=== PATIENT | female | born 1960 | race Caucasian/White ===

== ENCOUNTER 2017-03-05 17:41 | Emergency (ER) | payer OTHER, SELFPAY | END 2017-03-05 18:34 | disposition home or self-care (01) | LOC: ERS 17:41 | DX: G89.29 Other chronic pain (principal); M54.5 Low back pain; M26.601 Right temporomandibular joint disorder, unspecified | CPT/HCPCS: 99283 ==

== ENCOUNTER 2017-09-23 23:08 | Emergency (ER) | payer MEDICARE, MEDICAID ==
[2017-09-23 23:48] LABS: #Basophils 0.1 thou/uL (0.0-0.2); #Monocytes 0.6 thou/uL (0.11-0.59); #Neutrophils 9.6 thou/uL (1.40-6.50); %Basophils 0.4 % (0.0-1.0); %Eosinophils 0.3 % (0.0-10.0); %Lymphocytes 16.5 % (21.0-51.0); %Monocytes 4.9 % (0.0-10.0); %Neutrophils 77.9 % (42.0-75.0); Hemoglobin 16.9 g/dL (12.0-16.0); Mean Corpuscular HGB CONC 34.8 g/dL (32.0-36.0); Mean Corpuscular Hemoglobin 32.7 pg (27.0-31.0); Mean Platelet Volume 8.1 fL (7.4-10.4); Platelet Count 224 thou/uL (130-400); RBC Distribution Width 11.4 % (11.5-14.5); Red Blood Cell (RBC) Count 5.17 mill/uL (4.20-5.40); White Blood Cell (WBC) Count 12.3 thou/uL (4.8-10.8)
[2017-09-23] MEDS ORDERED: Lorazepam 2 MG/ML VIAL ONE (23:49)
[2017-09-24 00:14] LABS: ALT (SGPT) 17 U/L (8-55); AST (SGOT) 20 U/L (5-34); Albumin 5.1 g/dL (3.5-5.0); Alkaline Phosphatase 116 U/L (40-150); Anion Gap 19 mmol/L (10-20); BUN (Urea Nitrogen) 11 mg/dL (9.8-20.1); Bilirubin, Total 0.6 mg/dL (0.2-1.2); Calc. Creatinine Clearance 0 mL/min (70-130); Calcium 10.8 mg/dL (7.8-10.44); Carbon Dioxide 19 mmol/L (22-29); Chloride 107 mmol/L (98-107); Estimated GFR-MDRD 65; Globulin 3.6 g/dL (2.4-3.5); Glucose 110 mg/dL (70-105); Lipase 26 U/L (8-78); Potassium 3.7 mmol/L (3.5-5.1); Protein, Total 8.7 g/dL (6.0-8.3); Sodium 141 mmol/L (136-145)
[2017-09-24] MEDS ORDERED: Haloperidol Lactate 5 MG/ML VIAL ONE (00:59)
== END 2017-09-24 03:10 | disposition home or self-care (01) ==
LOC: ERS 23:08
DX: R10.9 Unspecified abdominal pain (principal); F41.1 Generalized anxiety disorder; F32.9 Major depressive disorder, single episode, unspecified
CPT/HCPCS: 36415; 80053; 83690; 85025; 93005; 96361; 96374; 96375; J1630; J2060

== ENCOUNTER 2020-01-13 07:19 | Outpatient (CLI) | payer MEDICARE, MEDICAID ==
--- NOTE | 2020-01-13 08:22 | MMO ---
Bilateral MAMMO Bilat Screen [facility]. CLINICAL HISTORY: Patient is 59 years old and is seen for screening. The patient has no family history of breast cancer. The patient has no personal history of cancer. VIEWS: The views performed were: bilateral craniocaudal with tomosynthesis; bilateral mediolateral oblique with tomosynthesis; and cleavage view with tomosynthesis. FILMS COMPARED: The present examination has been compared to a prior imaging study performed at [facility] on 12/01/2006. This study has been interpreted with the assistance of computer-aided detection. MAMMOGRAM FINDINGS: There are scattered fibroglandular densities. Finding 1: There are stable benign appearing calcifications seen in both breasts. Finding 2: There are stable benign appearing densities seen in both breasts. There are no suspicious masses, suspicious calcifications, or new areas of architectural distortion. IMPRESSION: THERE IS NO MAMMOGRAPHIC EVIDENCE OF MALIGNANCY. A ROUTINE FOLLOW-UP MAMMOGRAM IN 1 YEAR IS RECOMMENDED. THE RESULTS OF THIS EXAM WERE SENT TO THE PATIENT. ACR BI-RADS Category 2 - Benign finding MAMMOGRAPHY NOTE: 1. A negative mammogram report should not delay a biopsy if a dominant of clinically suspicious mass is present. 2. Approximately 10% to 15% of breast cancers are not detected by mammography. 3. Adenosis and dense breasts may obscure an underlying neoplasm. Reported by: ROBY HAGAN MD Electonically Signed: [id number]
--- NOTE | 2020-01-13 08:28 | ULT ---
RIGHT UPPER QUADRANT ULTRASOUND: HISTORY: Hepatitis C. FINDINGS: Liver echogenicity is somewhat coarse, evidence for nonspecific hepatic parenchymal process. No evid ence of gallstones, gallbladder wall thickening, or pericholecystic fluid. Common bile duct 0.4 cm. Visualized pancreas and right kidney are unremarkable. No evidence for abnormal fluid collection. Negative Meza's sign. IMPRESSION: Somewhat coarse liver echogenicity, evidence for nonspecific hepatic parenchymal process. No other a cute process. POS: OFF
== END 2020-01-13 07:20 | disposition home or self-care (01) ==
LOC: BICULT 07:19
PROVIDERS: ATTEND Student in an Organized Health Care Education/Training Program
DX: Z12.31 Encounter for screening mammogram for malignant neoplasm of breast (principal); B19.20 Unspecified viral hepatitis C without hepatic coma; R93.2 Abnormal findings on diagnostic imaging of liver and biliary tract
CPT/HCPCS: 76705; 77063; 77067

== ENCOUNTER 2020-02-22 08:02 | Outpatient (CLI) | payer MEDICARE, MEDICAID ==
--- NOTE | 2020-02-22 08:45 | CT ---
CT PULMONARY LUNG SCAN: History: Low dose lung cancer screening. Personal history of nicotine dependence. Comparison: None.. Findings: Lung screening specific (lung-RADS): Negative. No suspicious pulmonary nodules. Potentially significant incidentals: Negative. No new or unknown potentially significant incidental f indings. Other incidentals: No adenopathy. Limited evaluation of the upper abdomen is unremarkable. No acute o sseous abnormality. Thoracic spine is intact as well as the sternum and manubrium. No acute displaced rib fracture. Impression: 1. Lung RADS category 1: Negative. Recommend follow-up low dose screening CT chest in one year. 2. Lung RADS category S: Negative. No new or unknown potentially significant incidental findings requ iring urgent additional evaluation. Transcribed Date/Time: 02/22/2020 9:14 AM
== END 2020-02-22 08:03 | disposition home or self-care (01) ==
LOC: BICCT 08:02
PROVIDERS: ATTEND Student in an Organized Health Care Education/Training Program
DX: Z12.2 Encounter for screening for malignant neoplasm of respiratory organs (principal)
CPT/HCPCS: G0297

== ENCOUNTER 2020-03-04 19:00 | Outpatient (CLI) | payer MEDICARE, MEDICAID | END 2020-03-04 19:01 | disposition home or self-care (01) | LOC: SLEEPLAB 19:00 | PROVIDERS: ATTEND Student in an Organized Health Care Education/Training Program | DX: G47.33 Obstructive sleep apnea (adult) (pediatric) (principal); R06.83 Snoring; G47.00 Insomnia, unspecified; G47.10 Hypersomnia, unspecified; I10 Essential (primary) hypertension; F32.9 Major depressive disorder, single episode, unspecified | CPT/HCPCS: 95811 ==

== ENCOUNTER 2021-05-27 08:38 | Outpatient (CLI) | payer MEDICARE, MEDICAID | END 2021-05-27 08:39 | disposition home or self-care (01) | LOC: BICCT 08:38 | PROVIDERS: ATTEND Student in an Organized Health Care Education/Training Program | DX: Z12.2 Encounter for screening for malignant neoplasm of respiratory organs (principal); F17.210 Nicotine dependence, cigarettes, uncomplicated | CPT/HCPCS: 71271 ==

== ENCOUNTER 2021-10-10 12:43 | Outpatient (CLI) | payer MEDICARE, OTHER ==
[2021-10-10 13:48] LABS: #Basophils 0.1 10x3/uL (0.0-0.2); #Eosinphils 0.1 10x3/uL (0.0-0.5); #Monocytes 0.6 10x3/uL (0.0-1.1); %Basophils 0.8 % (0.0-2.0); %Lymphocytes 32.4 % (18.0-47.0); %Monocytes 8.5 % (0.0-10.0); Hemoglobin 15.2 g/dL (12.0-15.5); Mean Corpuscular HGB CONC 34.1 g/dL (32.0-36.0); Mean Corpuscular Hemoglobin 31.3 pg (27.0-33.0); Mean Corpuscular Volume 91.8 fl (81.6-98.3); Mean Platelet Volume 10.6 fl (7.4-10.4); Platelet Count 249 10x3/uL (150-450); Red Blood Cell (RBC) Count 4.86 10x6/uL (3.90-5.03); White Blood Cell (WBC) Count 7.1 10x3/uL (3.5-10.5)
[2021-10-10 14:15] LABS: INR-International Normal Ratio 0.9; Prothrombin Time 9.8 sec (9.5-12.1)
[2021-10-10 14:20] LABS: Anion Gap 18 mmol/L (10-20); BUN (Urea Nitrogen) 13 mg/dL (9.8-20.1); Calc. Creatinine Clearance 0 mL/min (70-130); Calcium 9.6 mg/dL (7.8-10.44); Carbon Dioxide 25 mmol/L (22-29); Chloride 104 mmol/L (98-107); Glucose 151 mg/dL (70-105); Potassium 4.5 mmol/L (3.5-5.1); Sodium 142 mmol/L (136-145)
[2021-10-10 21:29] LABS: SARS-CoV-2 PCR by NAA Not Detected (NotDetected)
== END 2021-10-10 12:44 | disposition home or self-care (01) ==
LOC: LABBT 12:43
PROVIDERS: ATTEND Orthopaedic Surgery
DX: Z01.818 Encounter for other preprocedural examination (principal); M17.11 Unilateral primary osteoarthritis, right knee; Z20.822 Contact with and (suspected) exposure to COVID-19
CPT/HCPCS: 80048; 85025; 85610; 87081; 93005; U0003; U0005; 93010

== ENCOUNTER 2021-10-15 06:56 | Inpatient (IN) | payer MEDICARE, OTHER ==
[2021-10-15] MEDS ORDERED: Sodium Chloride 0.9% 100 ML ONE ×2 (07:40→09:17)
[2021-10-15] MEDS ORDERED: Tranexamic Acid 1,000 MG/10 ML VIAL ONE (07:40)
[2021-10-15] MEDS ORDERED: Vancomycin (BATCH) 1.5 GRAM/300 ML BAG ONE (07:40)
[2021-10-15] MEDS ORDERED: Midazolam HCl 2 mg/2 ml Vial ONE (08:27)
[2021-10-15] MEDS ORDERED: Fentanyl 100 MCG/2 ML VIAL ONE ×2 (08:27→11:24)
[2021-10-15] MEDS ORDERED: Zolpidem Tartrate 5 MG TAB PO PRN ×2 (09:10→09:30)
[2021-10-15] MEDS ORDERED: Promethazine HCl 25 MG/ML VIAL IM PRN ×3 (09:10→11:09)
[2021-10-15] MEDS ORDERED: diphenhydrAMINE 25 MG CAP PO PRN (09:10)
[2021-10-15] MEDS ORDERED: Fentanyl 100 MCG/2 ML VIAL SLOW IVP PRN ×2 (09:10)
[2021-10-15] MEDS ORDERED: Acetaminophen 325 MG TAB PO PRN (09:10)
[2021-10-15] MEDS ORDERED: Bupivacaine PF 0.5% 30 ML VIAL ONE ×2 (09:10→11:50)
[2021-10-15] MEDS ORDERED: Ondansetron PF 4 MG/2 ML Vial IVP PRN ×2 (09:10→09:30)
[2021-10-15] MEDS ORDERED: HYDROcodone/Acetaminophen 10/325 mg Tablet PO PRN ×2 (09:10→09:30)
[2021-10-15] MEDS ORDERED: ceFAZolin 2 GM/Dextrose 50 ML 2 GM in Premix Bag 1 BAG IVPB SCH (09:15)
[2021-10-15] MEDS ORDERED: CEFAZOLIN 2 GM VIAL ONE (09:17)
[2021-10-15] MEDS ORDERED: fentaNYL Citrate/PF 100 MCG/2 ML SYRINGE ONE (09:23)
[2021-10-15] MEDS ORDERED: Fentanyl 100 MCG/2 ML VIAL IV PRN (09:24)
[2021-10-15] MEDS ORDERED: PHENYLEPHRINE-NS 100 MCG/ML 10 ML SYRINGE ONE (09:24)
[2021-10-15] MEDS ORDERED: Ondansetron PF 4 MG/2 ML Vial ONE (09:24)
[2021-10-15] MEDS ORDERED: Lidocaine 1% PF 5 ML VIAL ONE (09:24)
[2021-10-15] MEDS ORDERED: Ketorolac Tromethamine 30 MG/ML VIAL ONE (09:24)
[2021-10-15] MEDS ORDERED: PROPOFOL 200 MG/20 ML VIAL ONE (09:24)
[2021-10-15] MEDS ORDERED: Dexamethasone 20 MG/5 ML VIAL ONE (09:24)
[2021-10-15] MEDS ORDERED: Ropivacaine 0.5% HCl/PF (150 MG/30 ML VIAL) ONE (09:24)
[2021-10-15] MEDS ORDERED: Ropivacaine 0.2% 550 ML 550 ML NERVE BLCK SCH (09:30)
[2021-10-15] MEDS ORDERED: traMADol HCl 50 MG TAB PO PRN ×2 (09:30)
[2021-10-15] MEDS ORDERED: Promethazine HCl 25 MG/ML VIAL IVPB PRN (11:09)
[2021-10-15] MEDS ORDERED: Ondansetron HCl/PF 4 MG/2 ML Vial IVP PRN (11:09)
[2021-10-15] MEDS ORDERED: HYDROmorphone 2 MG/ML VIAL SLOW IVP PRN (11:09)
[2021-10-15] MEDS ORDERED: HYDROmorphone 0.5 MG/0.5 ML SYRINGE ONE ×3 (11:59→12:47)
[2021-10-15] MEDS ORDERED: Ketorolac Tromethamine 30 MG/ML VIAL IM SCH (14:00)
[2021-10-15 15:42] VITALS: BMI 47.1
[2021-10-15] MEDS: HYDROcodone/Acetaminophen 10/325 mg Tablet PO PRN (15:57)
[2021-10-15] MEDS: Ketorolac Tromethamine 30 MG/ML VIAL IVP SCH ×2 (15:58)
[2021-10-15] MEDS: Sodium Chloride 0.9% 1,000 ML IV SCH ×2 (16:44→18:22)
[2021-10-15] MEDS: CEFAZOLIN 2 GM in Sodium Chloride 0.9% 100 ML IVPB SCH (18:22)
[2021-10-15] MEDS: Senokot S 8.6-50 MG TAB PO SCH (20:04)
[2021-10-15] MEDS: Aspirin 81 mg Enteric Coated Tablet PO SCH (20:05)
[2021-10-15] MEDS: Ferrous Gluconate 324 MG TAB PO SCH (20:05)
[2021-10-16] MEDS: Ketorolac Tromethamine 30 MG/ML VIAL IVP SCH ×5 (00:26→23:23)
[2021-10-16] MEDS: CEFAZOLIN 2 GM in Sodium Chloride 0.9% 100 ML IVPB SCH (02:34)
[2021-10-16] MEDS: Sodium Chloride 0.9% 1,000 ML IV SCH ×3 (04:07→21:42)
[2021-10-16 06:33] LABS: Hemoglobin 11.8 g/dL (12.0-16.0); Mean Corpuscular Hemoglobin 32.4 pg (27.0-31.0); Mean Platelet Volume 8.5 fL (7.4-10.4); Platelet Count 191 thou/uL (130-400); RBC Distribution Width 11.3 % (11.5-14.5); Red Blood Cell (RBC) Count 3.65 mill/uL (4.20-5.40); White Blood Cell (WBC) Count 12.9 thou/uL (4.8-10.8)
[2021-10-16] MEDS: Venlafaxine HCl XR 150 MG CAP PO SCH (07:27)
[2021-10-16] MEDS: HYDROcodone/Acetaminophen 10/325 mg Tablet PO PRN ×4 (07:27→18:05)
[2021-10-16] MEDS: Multivitamin W/ Minerals 1 TAB PO SCH (07:27)
[2021-10-16] MEDS: Ferrous Gluconate 324 MG TAB PO SCH ×2 (07:27→20:15)
[2021-10-16] MEDS: Senokot S 8.6-50 MG TAB PO SCH ×2 (07:27→20:15)
[2021-10-16] MEDS: Aspirin 81 mg Enteric Coated Tablet PO SCH ×2 (07:27→20:15)
[2021-10-17] MEDS: HYDROcodone/Acetaminophen 10/325 mg Tablet PO PRN ×4 (04:32→18:12)
[2021-10-17] MEDS: Ketorolac Tromethamine 30 MG/ML VIAL IVP SCH (05:23)
[2021-10-17] MEDS: Ferrous Gluconate 324 MG TAB PO SCH ×2 (08:15→20:06)
[2021-10-17] MEDS: Senokot S 8.6-50 MG TAB PO SCH ×2 (08:15→20:06)
[2021-10-17] MEDS: Aspirin 81 mg Enteric Coated Tablet PO SCH ×2 (08:15→20:06)
[2021-10-17] MEDS: Venlafaxine HCl XR 150 MG CAP PO SCH (08:15)
[2021-10-17] MEDS: Multivitamin W/ Minerals 1 TAB PO SCH (08:17)
[2021-10-17] MEDS: Sodium Chloride 0.9% 1,000 ML IV SCH ×2 (10:34→19:11)
[2021-10-18] MEDS: HYDROcodone/Acetaminophen 10/325 mg Tablet PO PRN ×3 (04:22→12:14)
[2021-10-18] MEDS: Sodium Chloride 0.9% 1,000 ML IV SCH (04:35)
[2021-10-18] MEDS: Senokot S 8.6-50 MG TAB PO SCH (08:00)
[2021-10-18] MEDS: Ferrous Gluconate 324 MG TAB PO SCH (08:00)
[2021-10-18] MEDS: Venlafaxine HCl XR 150 MG CAP PO SCH (08:00)
[2021-10-18] MEDS: Aspirin 81 mg Enteric Coated Tablet PO SCH (08:00)
[2021-10-18] MEDS: Multivitamin W/ Minerals 1 TAB PO SCH (08:02)
[2021-10-18 16:00] VITALS: BP 133/80; TEMP 98.7
== END 2021-10-18 16:30 | DRG 470 ==
LOC: SDC 06:56 → SJJU 15:10 → SURG B 18:13 → OBSVTOIN 10-17 12:41
PROVIDERS: ADMIT Orthopaedic Surgery; ATTEND Orthopaedic Surgery
PROC: 0SRC0J9 Replacement of Right Knee Joint with Synthetic Substitute, Cemented, Open Approach (ICD-10-PCS; principal; 2021-10-15)
PROC: 8E0YXBZ Computer Assisted Procedure of Lower Extremity (ICD-10-PCS; 2021-10-15)
DX: M17.11 Unilateral primary osteoarthritis, right knee (principal); Z68.41 Body mass index [BMI] 40.0-44.9, adult; Z20.822 Contact with and (suspected) exposure to COVID-19; I10 Essential (primary) hypertension; E66.01 Morbid (severe) obesity due to excess calories; K21.9 Gastro-esophageal reflux disease without esophagitis; F32.A Depression, unspecified; F41.9 Anxiety disorder, unspecified; G47.00 Insomnia, unspecified; F17.210 Nicotine dependence, cigarettes, uncomplicated; Z79.899 Other long term (current) drug therapy
CPT/HCPCS: 36415; 85027; 96374; 96375; 96376; A4306; C1713; C1776; G0378; J1100; J1170; J1885; J2250; J2405; J2704; J2795; J3010; J3370; J3490; J7050; S0020

== ENCOUNTER 2023-07-07 17:59 | Inpatient (IN) | payer OTHER ==
[~2023-07-07 17:59] MED LIST: Iopamidol-370 76% 500 ML MDV (1 ML CHARGE) ONE
[2023-07-07] MEDS ORDERED: cefTRIAXone (ROCEPHIN) 2 GM VIAL ONE (18:28)
[2023-07-07] MEDS ORDERED: Sodium Chloride 0.9% 100 ML ONE (18:29)
[2023-07-07 18:50] LABS: Hematocrit 39.1 % (36.0-47.0); Hemoglobin 13.3 g/dL (12.0-16.0); Manual Diff?? YES; Mean Corpuscular Hemoglobin 31.7 pg (27.0-31.0); Mean Corpuscular Volume 93.1 fl (78.0-98.0); Mean Platelet Volume 9.4 fL (7.4-10.4); Platelet Count 255 10x3/uL (130-400); RBC Distribution Width 12.3 % (11.5-14.5); White Blood Cell (WBC) Count 12.7 10x3/uL (4.8-10.8)
[2023-07-07 18:52] LABS: Delete Auto Diff?? YES
[2023-07-07 19:14] LABS: Band 5 % (5-11); CellaVision Operator ID LAB.KB; Lymphocytes 4 % (21-51); Monocytes 18 % (0-10); Neutrophil 73 % (42-75); Platelet Adequacy Comment Platelets Normal; Polychromasia SLIGHT = 2-3 cells HPF (0-2); Total Cell Count 100
[2023-07-07 19:22] LABS: Troponin I Less than 0.010 ng/mL (< 0.028)
[2023-07-07 19:30] LABS: ALT (SGPT) 13 U/L (8-55); AST (SGOT) 14 U/L (5-34); Albumin 3.3 g/dL (3.4-4.8); Alkaline Phosphatase 104 U/L (40-110); Anion Gap 14 mmol/L (10-20); BUN (Urea Nitrogen) 15 mg/dL (9.8-20.1); Bilirubin, Total 0.8 mg/dL (0.2-1.2); Calc. Creatinine Clearance 0 mL/min (70-130); Calcium 8.8 mg/dL (7.8-10.44); Carbon Dioxide 27 mmol/L (23-31); Chloride 98 mmol/L (98-107); Estimated GFR 75; Globulin 3.9 g/dL (2.4-3.5); Glucose 153 mg/dL (80-115); Potassium 3.2 mmol/L (3.5-5.1); Protein, Total 7.2 g/dL (5.8-8.1); Sodium 136 mmol/L (136-145)
[2023-07-07 19:55] LABS: SARS-CoV-2 NAA Rapid Test Not Detected (NotDetected)
[2023-07-07] MEDS ORDERED: Azithromycin 500 MG VIAL ONE (19:55)
[2023-07-07 21:19] LABS: Bilirubin Negative (Negative); Blood, Urine Negative (Negative); CAUTI Indications for Culture Fever or rigors; Clarity Clear (Clear); Glucose, Urine (Dipstick) Normal (Negative); Ketone, Urine Negative (Negative); Leukocyte Negative Leu/uL (Negative); Nitrite Negative (Negative); Protein, Urine (Dipstick) Negative (Neg-Trace); RBC/HPF 0-3 HPF (0-3); Urobilinogen 3 mg/dL (Less than 2); WBC/HPF 0-3 HPF (0-3)
[2023-07-07 22:01] LABS: Bacteria/HPF 1+ HPF (None Seen)
[2023-07-07 22:02] LABS: Urine Culture Reflex No No
[2023-07-07] MEDS: Sodium Chloride 0.9% 1,000 ML IV SCH (22:55)
[2023-07-07] MEDS ORDERED: Ondansetron ODT 4 MG TAB PO PRN (23:23)
[2023-07-07] MEDS ORDERED: Ondansetron PF 4 MG/2 ML Vial IVP PRN (23:23)
[2023-07-07] MEDS ORDERED: Acetaminophen 650 MG Suppository PR PRN (23:23)
[2023-07-07] MEDS ORDERED: Ipratropium/Albuterol 3 ML NEB NEB PRN (23:26)
[2023-07-07] MEDS ORDERED: Acetaminophen 325 MG TAB ONE (23:48)
[2023-07-07] MEDS ORDERED: methylPREDNISolone Sod Succ 40 MG VIAL ONE (23:48)
[2023-07-07] MEDS ORDERED: Potassium Bicarbonate/Cit Ac 20 MEQ TAB ONE (23:49)
[2023-07-07] MEDS: methylPREDNISolone Sod Succ/PF 125 MG/2 ML VIAL IVP SCH (23:56)
[2023-07-07] MEDS: Potassium Chloride 20 MEQ TAB PO SCH (23:56)
[2023-07-07] MEDS: Acetaminophen 325 MG TAB PO PRN (23:56)
[2023-07-08 00:02] VITALS: BMI 34.8
[2023-07-08] MEDS ORDERED: Ipratropium/Albuterol 3 ML NEB NEB SCH (02:30)
[2023-07-08 05:23] LABS: Hematocrit 41.5 % (36.0-47.0); Hemoglobin 13.9 g/dL (12.0-16.0); Manual Diff?? YES; Mean Corpuscular HGB CONC 33.5 g/dL (32.0-36.0); Mean Corpuscular Hemoglobin 31.3 pg (27.0-31.0); Mean Corpuscular Volume 93.5 fl (78.0-98.0); Mean Platelet Volume 9.3 fL (7.4-10.4); Platelet Count 295 10x3/uL (130-400); RBC Distribution Width 12.4 % (11.5-14.5); Red Blood Cell (RBC) Count 4.44 mill/uL (4.20-5.40); White Blood Cell (WBC) Count 14.2 10x3/uL (4.8-10.8)
[2023-07-08 05:32] LABS: Delete Auto Diff?? YES
[2023-07-08 05:56] LABS: Band 25 % (5-11); CellaVision Operator ID lab.abc; Large Platelets 2.9 % (0-5); Lymphocytes 1 % (21-51); Monocytes 1 % (0-10); Neutrophil 74 % (42-75); Platelet Adequacy Comment Platelets Normal; RBC Morphology Within Normal Limits; Total Cell Count 102
[2023-07-08 05:57] LABS: Anion Gap 12 mmol/L (10-20); BUN (Urea Nitrogen) 13 mg/dL (9.8-20.1); Carbon Dioxide 27 mmol/L (23-31); Magnesium 2.4 mg/dL (1.6-2.6); Potassium 4.1 mmol/L (3.5-5.1)
[2023-07-08 06:22] LABS: Calc. Creatinine Clearance 111 mL/min (70-130); Calcium 9.2 mg/dL (7.8-10.44); Chloride 104 mmol/L (98-107); Estimated GFR 89; Glucose 162 mg/dL (80-115); Sodium 139 mmol/L (136-145)
[2023-07-08] MEDS: Ipratropium/Albuterol 3 ML NEB NEB SCH (07:48)
[2023-07-08] MEDS: Enoxaparin 40 MG (0.4 mL) SYRINGE SC SCH (08:57)
[2023-07-08] MEDS: Venlafaxine HCl XR 150 MG CAP PO SCH (09:28)
[2023-07-08 12:11] LABS: HIV (1/2) Antibody/Antigen Non-Reactive (NonReactive); HIV 1/2 INDEX 0.16 S/CO (<1.00)
[2023-07-08] MEDS: methylPREDNISolone Sod Succ 40 MG VIAL IVP SCH (12:25)
[2023-07-08] MEDS: Nicotine 14 MG PATCH TD SCH (12:25)
[2023-07-08 13:19] LABS: Hemoglobin A1c 5.8 % (4.0-6.0)
[2023-07-08] MEDS: cefTRIAXone\\ROCEPHIN 1 GM in Sodium Chloride 0.9% 100 ML IVPB SCH (18:30)
[2023-07-08] MEDS: Nystatin Powder 15 GM BOT TOP PRN (19:09)
[2023-07-08] MEDS: Azithromycin 500 MG in Sodium Chloride 0.9% 250 ML 250 ML IVPB SCH (21:23)
[2023-07-08 23:46] LABS: Amphetamine Detected (NotDetected); Barbiturates Screen Not Detected (NotDetected); Benzodiazepine Screen Not Detected (NotDetected); Cocaine Metabolite Screen Not Detected (NotDetected); Methadone Not Detected (NotDetected); Methamphetamine Detected (NotDetected); Opiate Screen Not Detected (NotDetected); Oxycodone Screen Not Detected (NotDetected); Phencyclidine (PCP) Not Detected (NotDetected); THC/Cannabinoid Screen Detected (NotDetected); Tricyclic Screen Not Detected (NotDetected)
[2023-07-09 09:37] LABS: Legionella Urinary Ag Negative (Negative); Strep pneumo Urine Ag NEGATIVE (NEGATIVE)
[2023-07-10 04:23] LABS: Hematocrit 35.3 % (36.0-47.0); Hemoglobin 11.6 g/dL (12.0-16.0); Manual Diff?? YES; Mean Corpuscular HGB CONC 32.9 g/dL (32.0-36.0); Mean Corpuscular Hemoglobin 30.7 pg (27.0-31.0); Mean Corpuscular Volume 93.4 fl (78.0-98.0); Mean Platelet Volume 9.9 fL (7.4-10.4); Platelet Count 323 10x3/uL (130-400); RBC Distribution Width 12.5 % (11.5-14.5); Red Blood Cell (RBC) Count 3.78 mill/uL (4.20-5.40); White Blood Cell (WBC) Count 13.4 10x3/uL (4.8-10.8)
[2023-07-10 04:24] LABS: Delete Auto Diff?? YES
[2023-07-10 04:31] LABS: Hemoglobin A1c 5.8 % (4.0-6.0)
[2023-07-10 04:48] LABS: Band 6 % (5-11); CellaVision Operator ID LAB.CLH1; Hypochromia SLIGHT = 6-15 cells HPF (0-5); Lymphocytes 3 % (21-51); Monocytes 5 % (0-10); Neutrophil 86 % (42-75); Platelet Adequacy Comment Platelets Normal; Polychromasia SLIGHT = 2-3 cells HPF (0-2); Total Cell Count 100
[2023-07-10 04:50] LABS: Anion Gap 12 mmol/L (10-20); BUN (Urea Nitrogen) 27 mg/dL (9.8-20.1); CRP (Inflammatory) 8.44 mg/dL (= or < 0.5); Calc. Creatinine Clearance 118 mL/min (70-130); Calcium 8.6 mg/dL (7.8-10.44); Carbon Dioxide 27 mmol/L (23-31); Chloride 106 mmol/L (98-107); Estimated GFR 94; Glucose 149 mg/dL (80-115); Potassium 4.7 mmol/L (3.5-5.1); Sodium 140 mmol/L (136-145)
[2023-07-10 11:26] VITALS: BP 163/98; TEMP 97.6
[2023-07-10 14:40] LABS: HIV-1 Quantitative, RNA PCR <20 copies/mL (.)
== END 2023-07-10 11:41 | disposition home or self-care (01) | DRG 193 ==
LOC: ERS 17:59 → ERHOLD 22:02 → 2SW 07-08 01:05 → OBSVTOIN 07-08 08:49
PROVIDERS: ADMIT Student in an Organized Health Care Education/Training Program; ATTEND Family Medicine
PROC: 5A09457 Assistance with Respiratory Ventilation, 24-96 Consecutive Hours, Continuous Positive Airway Pressure (ICD-10-PCS; principal; 2023-07-08)
DX: J18.0 Bronchopneumonia, unspecified organism (principal); J96.01 Acute respiratory failure with hypoxia; J44.1 Chronic obstructive pulmonary disease with (acute) exacerbation; E87.6 Hypokalemia; R73.9 Hyperglycemia, unspecified; Z11.52 Encounter for screening for COVID-19; Z79.899 Other long term (current) drug therapy; Z96.651 Presence of right artificial knee joint; F17.210 Nicotine dependence, cigarettes, uncomplicated; Z98.51 Tubal ligation status; Z71.6 Tobacco abuse counseling
CPT/HCPCS: 36415; 71045; 71275; 80048; 80053; 80306; 81001; 83036; 83605; 83735; 83880; 84145; 84484; 85025; 86140; 86480; 87040; 87389; 87449; 87536; 87899; 93005; 94640; 96365; 96367; 96375; G0378; J0456; J0696; J1650; J2920; J2930; J3490; J7050; J7620; Q9967